=== PATIENT | male | born 1985 | race African-American/Black ===

== ENCOUNTER 2016-12-16 09:28 | Emergency (ER) ==
[2016-12-16 09:35] VITALS: BP 140/092
[2016-12-16] MEDS ORDERED: XYLOCAINE-MPF 1% 10 ML ONE (09:59)
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
[2016-12-16] MEDS ORDERED: BOOSTRIX VACCINE IM ONE (10:27)
== END 2016-12-16 10:47 | disposition home or self-care (01) ==
LOC: P.ED 09:28
DX: S61.411A Laceration without foreign body of right hand, initial encounter (principal); M79.641 Pain in right hand; R00.0 Tachycardia, unspecified; F17.210 Nicotine dependence, cigarettes, uncomplicated; Z23 Encounter for immunization; Z71.6 Tobacco abuse counseling; Y04.0XXA Assault by unarmed brawl or fight, initial encounter
CPT/HCPCS: 90471; 90715